=== PATIENT | female | born 1990 | race Caucasian/White ===

== ENCOUNTER 2020-02-02 09:00 | Emergency (ER) | payer SELFPAY ==
[~2020-02-02] VITALS: Ht 172.7 cm; Wt 102.1 kg
[2020-02-02] MEDS ORDERED: ASPIRIN 81 MG CHEW TAB PO ONE (09:15)
[2020-02-02 09:44] LABS: BASOPHILS % 0.3 % (0.0-1.0); EOSINOPHILS # (AUTO) 0.1 (0.0-0.4); EOSINOPHILS % 1.2 % (0.0-6.0); HEMATOCRIT 34.1 % (34.2-44.1); HEMOGLOBIN 10.1 g/dL (12.0-16.0); LYMPHOCYTES # (AUTO) 1.9 (1.0-3.2); LYMPHOCYTES % 28.8 % (18.0-39.1); MEAN CORPUSCULAR HEMOGLOBIN 22.1 pg (28-32); MEAN CORPUSCULAR HGB CONC 29.6 g/dL (31-35); MEAN CORPUSCULAR VOLUME 74.5 fL (81-99); MONOCYTES # (AUTO) 0.3 (0.2-0.8); MONOCYTES % 5.1 % (4.4-11.3); NEUTROPHILS # (AUTO) 4.1 (2.1-6.9); NEUTROPHILS % 64.1 % (38.7-80.0); PLATELET COUNT 291 x10e3/uL (140-360); RED BLOOD COUNT 4.58 x10e6/uL (3.6-5.1); RED CELL DISTRIBUTION WIDTH 15.9 % (11.7-14.4)
[2020-02-02 10:00] LABS: AMPHETAMINES SCREEN,URINE NEGATIVE (NEGATIVE); BENZODIAZEPINES SCREEN,URINE NEGATIVE (NEGATIVE); PHENCYCLIDINE SCREEN,URINE NEGATIVE (NEGATIVE)
[2020-02-02 10:09] LABS: ALANINE AMINOTRANSFERASE 20 IU/L (0-55); ALBUMIN 3.9 g/dL (3.5-5.0); ALBUMIN/GLOBULIN RATIO 1.1 (0.8-2.0); ALKALINE PHOSPHATASE 76 IU/L (40-150); ANION GAP 28.5 mmol/L (8-16); BLOOD UREA NITROGEN 10 mg/dL (7-26); BUN/CREATININE RATIO 11 (6-25); CALCIUM 8.3 mg/dL (8.4-10.2); CARBON DIOXIDE 23 mmol/L (22-29); CHLORIDE 89 mmol/L (98-107); CREATINE KINASE 52 IU/L (29-168); CREATININE, SERUM 0.88 mg/dL (0.57-1.11); EST GLOMERULAR FILTRATION RATE > 60 ML/MIN (60-); GLUCOSE 117 mg/dL (74-118); POTASSIUM 3.5 mmol/L (3.5-5.1); SODIUM 137 mmol/L (136-145)
[2020-02-02] MEDS ORDERED: DONNATAL/LIDOCAINE/MAALOX 30 ML SUSP PO ONE (10:43)
== END 2020-02-02 11:24 | disposition home or self-care (01) ==
LOC: ER 09:08
DX: R07.9 Chest pain, unspecified (principal)
CPT/HCPCS: 36415; 71045; 80053; 80307; 81025; 82550; 82553; 84484; 85025; 85379; 93005; 99284

== ENCOUNTER 2020-05-31 09:02 | Emergency (ER) | payer SELFPAY ==
[~2020-05-31] VITALS: Ht 172.7 cm; Wt 102.1 kg
[2020-05-31] MEDS ORDERED: SODIUM CHLORIDE 0.9% 1000ML 1,000 ML IV STA (09:12)
[2020-05-31 09:50] LABS: BASOPHILS % 0.3 % (0.0-1.0); EOSINOPHILS # (AUTO) 0.1 (0.0-0.4); EOSINOPHILS % 1.1 % (0.0-6.0); HEMATOCRIT 24.8 % (34.2-44.1); HEMOGLOBIN 7.1 g/dL (12.0-16.0); LYMPHOCYTES # (AUTO) 1.9 (1.0-3.2); LYMPHOCYTES % 29.9 % (18.0-39.1); MEAN CORPUSCULAR HEMOGLOBIN 20.1 pg (28-32); MEAN CORPUSCULAR HGB CONC 28.6 g/dL (31-35); MEAN CORPUSCULAR VOLUME 70.3 fL (81-99); MONOCYTES # (AUTO) 0.4 (0.2-0.8); NEUTROPHILS % 62.2 % (38.7-80.0); PLATELET COUNT 322 x10e3/uL (140-360); RED BLOOD COUNT 3.53 x10e6/uL (3.6-5.1); RED CELL DISTRIBUTION WIDTH 15.7 % (11.7-14.4)
[2020-05-31 10:00] LABS: CLARITY,URINE CLEAR (CLEAR); COLOR,URINE YELLOW (YELLOW); KETONES,URINE NEGATIVE (NEGATIVE); LEUKOCYTE ESTERASE ,URINE NEGATIVE (NEGATIVE); NITRITE,URINE NEGATIVE (NEGATIVE); PROTEIN,URINE DIPSTICK NEGATIVE (NEGATIVE); URINE UROBILINOGEN 0.2 mg/dL (0.2 - 1)
[2020-05-31 10:23] LABS: ALANINE AMINOTRANSFERASE 24 IU/L (0-55); ALBUMIN/GLOBULIN RATIO 1.1 (0.8-2.0); ALKALINE PHOSPHATASE 73 IU/L (40-150); ANION GAP 14.8 mmol/L (8-16); BLOOD UREA NITROGEN 11 mg/dL (7-26); BUN/CREATININE RATIO 14 (6-25); CALCIUM 8.6 mg/dL (8.4-10.2); CARBON DIOXIDE 24 mmol/L (22-29); CHLORIDE 104 mmol/L (98-107); CREATININE, SERUM 0.76 mg/dL (0.57-1.11); EPITHELIAL CELLS,URINE FEW /LPF; EST GLOMERULAR FILTRATION RATE > 60 ML/MIN (60-); GLUCOSE 99 mg/dL (74-118); POTASSIUM 3.8 mmol/L (3.5-5.1); RBC,URINE 0-5 /HPF (0-5); SODIUM 139 mmol/L (136-145)
[2020-05-31 10:24] LABS: BACTERIA,URINE MODERATE /HPF; MUCUS,URINE MANY (RARE)
[2020-05-31] MEDS ORDERED: KETOROLAC TROMETHAMINE 30 MG/ML VIAL IV STA (11:01)
[2020-05-31] MEDS ORDERED: ACETAMINOPHEN 325 MG TAB PO STA (11:01)
[2020-05-31 12:35] VITALS: BP 125/73
== END 2020-05-31 12:37 | disposition home or self-care (01) ==
LOC: ER 09:37
DX: D64.9 Anemia, unspecified (principal); R10.32 Left lower quadrant pain; R11.2 Nausea with vomiting, unspecified
CPT/HCPCS: 36415; 76830; 76856; 80053; 81001; 81025; 85025; 93976; 99284

== ENCOUNTER 2020-12-10 07:44 | Emergency (ER) | payer SELFPAY ==
[~2020-12-10] VITALS: Ht 172.7 cm; Wt 102.1 kg
[2020-12-10] MEDS ORDERED: SODIUM CHLORIDE 0.9% 1000ML 1,000 ML IV STA (08:44)
[2020-12-10] MEDS ORDERED: ONDANSETRON HCL INJ 2MG/ML 2ML 2 MG/ML VIAL IV STA (08:44)
[2020-12-10] MEDS ORDERED: MORPHINE SULFATE INJ 4 MG/ML INJ 1ML IV ONE (08:45)
[2020-12-10 09:03] LABS: BASOPHILS % 0.1 % (0.0-1.0); EOSINOPHILS % 0.2 % (0.0-6.0); HEMATOCRIT 31.5 % (34.2-44.1); HEMOGLOBIN 8.5 g/dL (12.0-16.0); LYMPHOCYTES # (AUTO) 1.7 (1.0-3.2); LYMPHOCYTES % 18.6 % (18.0-39.1); MEAN CORPUSCULAR HEMOGLOBIN 16.9 pg (28-32); MEAN CORPUSCULAR VOLUME 62.7 fL (81-99); MONOCYTES # (AUTO) 0.6 (0.2-0.8); MONOCYTES % 6.2 % (4.4-11.3); NEUTROPHILS # (AUTO) 6.9 (2.1-6.9); NEUTROPHILS % 74.5 % (38.7-80.0); PLATELET COUNT 475 x10e3/uL (140-360); RED BLOOD COUNT 5.02 x10e6/uL (3.6-5.1); RED CELL DISTRIBUTION WIDTH 18.7 % (11.7-14.4)
[2020-12-10 09:14] LABS: CLARITY,URINE CLOUDY (CLEAR); COLOR,URINE YELLOW (YELLOW)
[2020-12-10 09:15] LABS: KETONES,URINE 1+ (NEGATIVE); LEUKOCYTE ESTERASE ,URINE MODERATE (NEGATIVE); NITRITE,URINE NEGATIVE (NEGATIVE); PROTEIN,URINE DIPSTICK 2+ (NEGATIVE); URINE UROBILINOGEN 0.2 mg/dL (0.2 - 1)
[2020-12-10 09:18] LABS: BACTERIA,URINE MODERATE /HPF; EPITHELIAL CELLS,URINE MANY /LPF; RBC,URINE 0-5 /HPF (0-5)
[2020-12-10 09:30] LABS: ALBUMIN 4.3 g/dL (3.5-5.0); ANION GAP 17.7 mmol/L (8-16); CALCIUM 9.5 mg/dL (8.4-10.2); CREATININE, SERUM 0.93 mg/dL (0.57-1.11); POTASSIUM 3.7 mmol/L (3.5-5.1)
[2020-12-10] MEDS ORDERED: IOPAMIDOL 370 MG/ML 200 ML INFUS..BTL INJ ONE (10:03)
[2020-12-10] MEDS ORDERED: SODIUM CHLORIDE 0.9% 50ML 50 ML ONE (10:03)
[2020-12-10] MEDS ORDERED: CEFTRIAXONE 1 GM in SODIUM CHLORIDE 0.9% 50ML 50 ML IV ONE (10:30)
[2020-12-10] MEDS ORDERED: METOCLOPRAMIDE HCL 10 MG/2ML VIAL IV ONE (11:15)
[2020-12-10] MEDS ORDERED: PEPCID20 MG PO (11:38)
[2020-12-10] MEDS ORDERED: REGLAN10 MG PO (11:38)
[2020-12-10] MEDS ORDERED: IBUPROFEN600 MG PO (11:38)
[2020-12-10] MEDS ORDERED: CEPHALEXIN500 MG PO (12:06)
== END 2020-12-10 12:46 | disposition home or self-care (01) ==
LOC: ER 08:07
DX: R10.13 Epigastric pain (principal); N39.0 Urinary tract infection, site not specified; R11.2 Nausea with vomiting, unspecified
CPT/HCPCS: 36415; 74177; 80053; 81001; 81025; 83690; 85025; 99284; J0696; J2270; J2405; J2765; J7030; Q9967

== ENCOUNTER 2022-07-07 17:02 | Emergency (ER) | payer SELFPAY ==
[~2022-07-07] VITALS: Ht 172.7 cm; Wt 102.1 kg
[~2022-07-07 17:02] MED LIST: CEPHALEXIN500 MG PO; IBUPROFEN600 MG PO; PEPCID20 MG PO; REGLAN10 MG PO
[2022-07-07 18:19] LABS: CLARITY,URINE SL CLOUDY (CLEAR); COLOR,URINE YELLOW (YELLOW); KETONES,URINE NEGATIVE (NEGATIVE); LEUKOCYTE ESTERASE ,URINE NEGATIVE (NEGATIVE); NITRITE,URINE NEGATIVE (NEGATIVE); PROTEIN,URINE DIPSTICK 1+ (NEGATIVE); URINE UROBILINOGEN 0.2 mg/dL (0.2 - 1)
[2022-07-07 18:30] LABS: BACTERIA,URINE MODERATE /HPF; RBC,URINE 21-50 /HPF (0-5); WBC,URINE (MAN) 0-5 /HPF (0-5)
[2022-07-07] MEDS ORDERED: IBUPROFEN 600 MG TAB PO STA (19:39)
[2022-07-07] MEDS ORDERED: METHOCARBAMOL500 MG PO (20:44)
[2022-07-07] MEDS ORDERED: IBUPROFEN600 MG PO (20:44)
[2022-07-07 20:55] VITALS: BP 125/79; PULSE 85; RESP 17; TEMP 98.1; O2SAT 100
== END 2022-07-07 20:57 | disposition home or self-care (01) ==
LOC: ER 17:07
DX: R31.9 Hematuria, unspecified (principal); N20.0 Calculus of kidney; M54.50 Low back pain, unspecified
CPT/HCPCS: 74176; 81001; 81025; 99283

== ENCOUNTER 2023-09-10 19:51 | Emergency (ER) | payer SELFPAY ==
[~2023-09-10] VITALS: Ht 170.2 cm; Wt 113.4 kg
[~2023-09-10 19:51] MED LIST changes: +METHOCARBAMOL500 MG PO
[2023-09-10 20:22] VITALS: PULSE 83; RESP 19; TEMP 98.7
[2023-09-10 21:17] LABS: BASOPHILS % 0.2 % (0.0-1.0); EOSINOPHILS # (AUTO) 0.1 (0.0-0.4); EOSINOPHILS % 0.8 % (0.0-6.0); HEMATOCRIT 36.2 % (34.2-44.1); HEMOGLOBIN 10.8 g/dL (12.0-16.0); LYMPHOCYTES # (AUTO) 2.3 (1.0-3.2); LYMPHOCYTES % 25.3 % (18.0-39.1); MEAN CORPUSCULAR HEMOGLOBIN 23.8 pg (28-32); MEAN CORPUSCULAR HGB CONC 29.8 g/dL (31-35); MEAN CORPUSCULAR VOLUME 79.7 fL (81-99); MONOCYTES # (AUTO) 0.6 (0.2-0.8); MONOCYTES % 6.2 % (4.4-11.3); NEUTROPHILS % 67.1 % (38.7-80.0); PLATELET COUNT 301 x10e3/uL (140-360); RED BLOOD COUNT 4.54 x10e6/uL (3.6-5.1); RED CELL DISTRIBUTION WIDTH 16.2 % (11.7-14.4); WHITE BLOOD COUNT 8.93 x10e3/uL (4.8-10.8)
[2023-09-10 21:39] LABS: ALBUMIN 3.7 g/dL (3.5-5.0); ALBUMIN/GLOBULIN RATIO 1.1 (0.8-2.0); ANION GAP 13.4 mmol/L (8-16); BILIRUBIN,TOTAL 0.3 mg/dL (0.2-1.2); CREATININE, SERUM 0.95 mg/dL (0.57-1.11); TOTAL PROTEIN 7.2 g/dL (6.5-8.1)
[2023-09-10 21:48] LABS: POTASSIUM 3.4 mmol/L (3.5-5.1)
[2023-09-10 22:14] LABS: AMPHETAMINES SCREEN,URINE NEGATIVE (NEGATIVE); CLARITY,URINE CLEAR (CLEAR); COLOR,URINE YELLOW (YELLOW); GLUCOSE, URINE NEGATIVE (NEGATIVE); KETONES,URINE NEGATIVE (NEGATIVE); LEUKOCYTE ESTERASE ,URINE NEGATIVE (NEGATIVE); NITRITE,URINE NEGATIVE (NEGATIVE); OPIATES SCREEN,URINE NEGATIVE (NEGATIVE); PH,URINE 5.5 (5 - 7); PHENCYCLIDINE SCREEN,URINE NEGATIVE (NEGATIVE); PROTEIN,URINE DIPSTICK NEGATIVE (NEGATIVE)
[2023-09-10 22:15] LABS: BENZODIAZEPINES SCREEN,URINE NEGATIVE (NEGATIVE); BILIRUBIN,URINE NEGATIVE (NEGATIVE); CANNABINOIDS SCREEN,URINE NEGATIVE (NEGATIVE); METHADONE SCREEN, URINE NEGATIVE (NEGATIVE); PREGNANCY TEST, URINE NEGATIVE (NEGATIVE); URINE UROBILINOGEN 0.2 mg/dL (0.2 - 1)
[2023-09-10 22:28] LABS: BACTERIA,URINE MODERATE /HPF; EPITHELIAL CELLS,URINE FEW /LPF; RBC,URINE >50 /HPF (0-5); WBC,URINE (MAN) 0-5 /HPF (0-5)
[2023-09-11] MEDS ORDERED: PROGESTERONE200 MG PO (00:10)
[2023-09-11 00:13] VITALS: BP 136/70; PULSE 66; RESP 17; TEMP 98.6; O2SAT 100
== END 2023-09-11 00:11 | disposition home or self-care (01) ==
LOC: ER 19:58
DX: N93.8 Other specified abnormal uterine and vaginal bleeding (principal); N83.292 Other ovarian cyst, left side; N83.291 Other ovarian cyst, right side; R00.2 Palpitations; R94.31 Abnormal electrocardiogram [ECG] [EKG]; N88.8 Other specified noninflammatory disorders of cervix uteri; R53.1 Weakness; Z79.899 Other long term (current) drug therapy
CPT/HCPCS: 36415; 76830; 80053; 80307; 81001; 81025; 84702; 85025; 93005; 99284

== ENCOUNTER 2024-02-09 17:34 | Emergency (ER) | payer SELFPAY ==
[~2024-02-09] VITALS: Ht 170.2 cm; Wt 113.4 kg
[~2024-02-09 17:34] MED LIST changes: +PROGESTERONE200 MG PO
[2024-02-09 20:10] VITALS: PULSE 102; RESP 20; TEMP 100.2
[2024-02-09] MEDS ORDERED: IBUPROFEN 400 MG TAB PO ONE (20:30)
[2024-02-09] MEDS: ACETAMINOPHEN 325 MG TAB PO ONE (20:31)
[2024-02-09] MEDS: BENZONATATE 100 MG CAP PO STA (20:31)
[2024-02-09 21:37] LABS: CORONAVIRUS COVID-19 AG NEGATIVE (NEGATIVE); INFLUENZA A AG NEGATIVE (NEGATIVE); INFLUENZA B AG NEGATIVE (NEGATIVE)
[2024-02-09] MEDS ORDERED: BENZONATATE100 MG PO (22:20)
[2024-02-09 23:09] VITALS: BP 149/85; PULSE 99; RESP 16; TEMP 98.7; O2SAT 97
== END 2024-02-09 22:52 | disposition home or self-care (01) ==
LOC: ER 20:21
DX: R05.9 Cough, unspecified (principal); J06.9 Acute upper respiratory infection, unspecified; D64.9 Anemia, unspecified; F41.9 Anxiety disorder, unspecified; F32.A Depression, unspecified; Z11.52 Encounter for screening for COVID-19
CPT/HCPCS: 71046; 99284